=== PATIENT | female | born 1935 | race Hispanic/Latino ===

== ENCOUNTER 2017-09-18 12:14 | Emergency (ER) | payer MEDICARE ==
[2017-09-18 13:09] LABS: SQUAMOUS EPITHIAL 2 /hpf (0-5); URINE BACTERIA RARE (<OCC); URINE BILIRUBIN NEGATIVE (NEGATIVE); URINE BLOOD 2+ (NEGATIVE); URINE CLARITY Clear (Clear); URINE COLOR Straw (YELLOW); URINE GLUCOSE (UA) NORMAL (Normal); URINE LEUKOCYTE ESTERASE 3+ Leu/uL (Negative); URINE PROTEIN NEGATIVE (NEGATIVE); URINE UROBILINOGEN NORMAL mg/dL (0.2-1.0)
[2017-09-18] MEDS ORDERED: Sodium Chloride 0.9% 1,000 ML ONE (13:27)
[2017-09-18] MEDS: Sodium Chloride 0.9% 1,000 ML IV ONE (13:30)
[2017-09-18 13:49] LABS: BASO % 0.7 % (0.0-2.0); EOS % 0.4 % (0.0-4.0); HEMOGLOBIN 11.5 g/dL (11.0-16.0); LYMPH % 28.7 % (20.0-40.0); MEAN CELL VOLUME 82.8 fL (81.0-99.0); MEAN CORPUSCULAR HEMOGLOBIN 28.1 pg (27.0-31.0); MEAN PLATELET VOLUME 8.5 fL (7.2-11.7); MONO # 0.6 K/uL (0.0-0.8); MONO % 8.6 % (0.0-10.0); NEUT # 4.2 K/uL (1.8-7.0); NEUT % 61.6 % (50.0-75.0); NRBC % 0.1 % (0.0-2.0); RBC 4.1 Mil/uL (3.80-5.20); RED CELL DISTRIBUTION WIDTH 18.7 % (11.5-14.5); WHITE BLOOD COUNT 6.9 K/uL (4.8-10.8)
[2017-09-18 14:01] LABS: ALB/GLOB RATIO 1.2 (1.0-2.1); ALBUMIN 3.8 g/dL (3.5-5.0); ALT/SGPT 23 U/L (9-52); AST/SGOT 29 U/L (14-36); BLOOD UREA NITROGEN 18 mg/dL (7-17); CALCIUM 8.9 mg/dl (8.6-10.4); GFR AFRICAN-AMERICAN > 60; GFR NON-AFRICAN AMERICAN > 60; LIPASE 99 U/L (23-300)
--- NOTE | 2017-09-18 15:13 | CT ---
PROCEDURE: CT Abdomen and Pelvis without intravenous contrast HISTORY: SUPRAPUBIC PAIN COMPARISON: 11/14/2013 TECHNIQUE: Without contrast.. Contrast Dose: 0 Radiation dose: Total exam DLP = Total exam DLP = 380.88 mGy-cm. This CT exam was performed using one or more of the following dose reduction techniques: Automated exposure control, adjustment of the mA and/or kV according to patient size, and/or use of iterative reconstruction technique. FINDINGS: LOWER THORAX: No infiltrate/ effusion. Incidentally noted very small right Bochdalek's hernia containing only para renal fat. LIVER: Unremarkable. No gross lesion or ductal dilatation. GALLBLADDER AND BILE DUCTS: Cholecystectomy PANCREAS: Unremarkable. No gross lesion or ductal dilatation. SPLEEN: Unremarkable. ADRENALS: Unremarkable. No mass. KIDNEYS AND URETERS: Unremarkable. No hydronephrosis. No solid mass. VASCULATURE: Unremarkable. No aortic aneurysm. BOWEL: Sigmoid diverticulosis without evidence of diverticulitis. No bowel obstruction. APPENDIX: Unremarkable. Normal appendix. PERITONEUM: No ascites. No pneumoperitoneum. Very small right inguinal hernia containing only mesenteric fat. LYMPH NODES: Unremarkable. No enlarged lymph nodes. BLADDER: Poorly distended. No gross abnormality. REPRODUCTIVE: Several coarse calcifications within the uterus consistent with calcified fibroids. BONES: No acute fracture. OTHER FINDINGS: None. IMPRESSION: Small right inguinal hernia containing only mesenteric fat. Small calcified uterine fibroids. Incidental small right Bochdalek's hernia containing only right para renal fat. No additional abnormality.
--- NOTE | 2017-09-18 16:25 | C.PDOC ---
History Of Present Illness 82-year-old female presents to the emergency department with complaints of lower abdominal pain with dysuria and nausea since yesterday. Patient has a Hx of RA on Methotrexate, diagnosed 05/15/18. Patient denies fever, vomiting, diarrhea, hematuria or any other associated symptoms. Time Seen by Provider: 09/18/17 12:17 Chief Complaint (Nursing): Female Genitourinary History Per: Patient History/Exam Limitations: no limitations Current Symptoms Are (Timing): Still Present Severity: Mild Past Medical History Reviewed: Historical Data, Nursing Documentation, Vital Signs Vital Signs: Last Vital Signs Temp 98.0 F 09/18/17 16:47 Pulse 85 09/18/17 16:47 Resp 16 09/18/17 16:47 BP 158/82 H 09/18/17 16:47 Pulse Ox 98 09/18/17 17:48 - Medical History PMH: Arthritis (KNEE PAIN), Crohn's Disease, HTN, Hypercholesterolemia, Osteoporosis Surgical History: Cholecystectomy, Endoscopy - [facility] Procedures CLOSED ENDOSCOPIC BIOPSY OF LARGE INTESTINE (12/04/13) Family History: States: No Known Family Hx - Social History Hx Tobacco Use: No Hx Alcohol Use: No Hx Substance Use: No - Immunization History Hx Tetanus Toxoid Vaccination: Yes Hx Influenza Vaccination: Yes Hx Pneumococcal Vaccination: Yes Review Of Systems Constitutional: Negative for: Fever, Chills Cardiovascular: Negative for: Chest Pain Respiratory: Negative for: Shortness of Breath Gastrointestinal: Positive for: Nausea, Abdominal Pain. Negative for: Vomiting , Diarrhea Genitourinary: Positive for: Dysuria. Negative for: Hematuria Musculoskeletal: Negative for: Back Pain Physical Exam - Physical Exam Appears: Well, Non-toxic, No Acute Distress Skin: Normal Color, Warm, Dry, No Rash Head: Normacephalic Eye(s): bilateral: Normal Inspection Oral Mucosa: Moist Neck: Normal, Normal ROM Cardiovascular: Rhythm Regular, No Murmur Respiratory: Normal Breath Sounds, No Accessory Muscle Use, No Rales, No Rhonchi , No Wheezing Gastrointestinal/Abdominal: Bowel Sounds, Soft, Tenderness (mild epigastric and suprapubic TTP, (-) McBurney's, (-) Caicedo's), No Guarding, No Rebound Back: No CVA Tenderness Extremity: Normal ROM, No Deformity, No Swelling Neurological/Psych: Oriented x3 ED Course And Treatment - Laboratory Results Result Diagrams: 09/18/17 13:46 09/18/17 13:46 O2 Sat by Pulse Oximetry: 98 (RA) Pulse Ox Interpretation: Normal - CT Scan/US ct abd/pelvis Other Rad Studies (CT/US): Read By Radiologist, Radiology Report Reviewed CT/US Interpretation: Accession No. : [id number]. Patient Name / ID : SHANE HOUGH / [id number]. Exam Date : 09/18/2017 14:42:58 ( Approved ). Study Comment : Sex / Age : F / 82Y. Creator : Gwendolyn Buchanan. Dictator : Valentin Becerril MD. Jinriksha Driver : [employer] Cleaning Machine Tender : Valentin Becerril MD. Approver2 : Report Date : 09/18/2017 14:49:32. My Comment : . PROCEDURE: CT Abdomen and Pelvis without intravenous contrast. HISTORY: SUPRAPUBIC PAIN. COMPARISON: 11/14/2013. TECHNIQUE: Without contrast.. Contrast Dose: 0. Radiation dose: Total exam DLP =. Total exam DLP = 380.88 mGy-cm. This CT exam was performed using one or more of the following dose reduction techniques: Automated exposure control, adjustment of the mA and/or kV according to patient size, and/or use of iterative reconstruction technique. FINDINGS: LOWER THORAX: No infiltrate/ effusion. Incidentally noted very small right Bochdalek's hernia containing only para renal fat. LIVER: Unremarkable. No gross lesion or ductal dilatation. GALLBLADDER AND BILE DUCTS : Cholecystectomy. PANCREAS: Unremarkable. No gross lesion or ductal dilatation. SPLEEN: Unremarkable. ADRENALS: Unremarkable. No mass. KIDNEYS AND URETERS: Unremarkable. No hydronephrosis. No solid mass. VASCULATURE: Unremarkable. No aortic aneurysm. BOWEL: Sigmoid diverticulosis without evidence of diverticulitis. No bowel obstruction. APPENDIX: Unremarkable. Normal appendix. PERITONEUM: No ascites. No pneumoperitoneum. Very small right inguinal hernia containing only mesenteric fat. LYMPH NODES: Unremarkable. No enlarged lymph nodes. BLADDER: Poorly distended. No gross abnormality. REPRODUCTIVE: Several coarse calcifications within the uterus consistent with calcified fibroids. BONES: No acute fracture. OTHER FINDINGS : None. IMPRESSION: Small right inguinal hernia containing only mesenteric fat. Small calcified uterine fibroids. Incidental small right Bochdalek's hernia containing only right para renal fat. No additional abnormality. Progress Note: Blood work, UA, CT scan abd/pelvis ordered and reviewed. Patient given IV NS bolus. Reevaluation Time: 16:15 Reassessment Condition: Improved (On reassessment, patient is resting comfortably, in no pain/distress. On exam, abdomen is soft and nontender. Blood work and UA negative, and CT scan negative for acute findings. Patient is well appearing and comfortable being dishcarged home. She was given Rx for protonix and instructed to follow up with GI within 1 week. She understands she should return to ED if symptoms worsen.) Disposition Counseled Patient/Family Regarding: Studies Performed, Diagnosis, Need For Followup, Rx Given - Disposition Referrals: Polo Romero MD [Staff Provider] - Kath Hirsch MD [Staff Provider] - Disposition: HOME/ ROUTINE Disposition Time: 16:15 Condition: STABLE Additional Instructions: FOLLOW UP WITH YOUR GI SPECIALIST WITHIN 1 WEEK USE MEDICATION DIRECTED RETURN TO ER IF SYMPTOMS WORSEN Prescriptions: Pantoprazole [Protonix EC Tab] 20 mg PO DAILY #30 ect Instructions: Acute Abdomen (Belly Pain), Adult (DC) Forms: [employer] (Iranian) Print Language: BELARUSIAN - Clinical Impression Clinical Impression: Epigastric abdominal pain - Scribe Statement The provider has reviewed the documentation as recorded by the Scribe (Madhav Kaplan) All medical record entries made by the Scribe were at my direction and personally dictated by me. I have reviewed the chart and agree that the record accurately reflects my personal performance of the history, physical exam, medical decision making, and the department course for this patient. I have also personally directed, reviewed, and agree with the discharge instructions and disposition.
[2017-09-18 16:48] VITALS: BP 158/82; PULSE 85; RESP 16; TEMP 98
[2017-09-18 17:45] VITALS: O2SAT 98
== END 2017-09-18 16:55 | disposition home or self-care (01) ==
LOC: C.ER 12:14
DX: R10.13 Epigastric pain (principal); I10 Essential (primary) hypertension; E78.00 Pure hypercholesterolemia, unspecified
CPT/HCPCS: 74176; 80053; 81001; 83690; 85025; 96360; 99284; J7040

== ENCOUNTER 2018-04-16 08:17 | Emergency (ER) | payer MEDICARE ==
[2018-04-16 08:23] VITALS: TEMP 97.6
[2018-04-16] MEDS ORDERED: Sodium Chloride 0.9% 500 ML IV STA (09:30)
[2018-04-16] MEDS ORDERED: Iohexol 240 (50 ml) PO STA (09:30)
[2018-04-16 09:45] LABS: BASO % 0.2 % (0.0-2.0); EOS % 0.1 % (0.0-4.0); HEMOGLOBIN 12.7 g/dL (11.0-16.0); LYMPH # 1.2 K/uL (1.0-4.3); LYMPH % 12.8 % (20.0-40.0); MEAN CORPUSCULAR HEMOGLOBIN 28.7 pg (27.0-31.0); MEAN CORPUSCULAR HGB CONC 33.2 g/dL (33.0-37.0); MEAN PLATELET VOLUME 8.7 fL (7.2-11.7); MONO # 0.5 K/uL (0.0-0.8); MONO % 5.2 % (0.0-10.0); NEUT # 7.6 K/uL (1.8-7.0); NEUT % 81.7 % (50.0-75.0); RBC 4.42 Mil/uL (3.80-5.20); RED CELL DISTRIBUTION WIDTH 16.4 % (11.5-14.5); WHITE BLOOD COUNT 9.3 K/uL (4.8-10.8)
[2018-04-16] MEDS ORDERED: Iohexol 240 (50 ml) ONE (09:50)
[2018-04-16 09:51] LABS: MEAN CELL VOLUME 86.2 fL (81.0-99.0)
[2018-04-16 09:52] LABS: SQUAMOUS EPITHIAL 4 /hpf (0-5); URINE BILIRUBIN NEGATIVE (NEGATIVE); URINE BLOOD 2+ (NEGATIVE); URINE CLARITY Clear (Clear); URINE COLOR Yellow (YELLOW); URINE GLUCOSE (UA) NORMAL (Normal); URINE LEUKOCYTE ESTERASE 1+ Leu/uL (Negative); URINE PROTEIN NEGATIVE (NEGATIVE); URINE UROBILINOGEN NORMAL mg/dL (0.2-1.0)
[2018-04-16 09:57] LABS: ALB/GLOB RATIO 1.3 (1.0-2.1); ALBUMIN 4.1 g/dL (3.5-5.0); ALT/SGPT 25 U/L (9-52); AST/SGOT 24 U/L (14-36); BLOOD UREA NITROGEN 17 mg/dL (7-17); CALCIUM 9.1 mg/dl (8.6-10.4); GFR NON-AFRICAN AMERICAN > 60; LIPASE 48 U/L (23-300)
--- NOTE | 2018-04-16 12:54 | C.PDOC ---
History Of Present Illness 82 y/o female presents to the ER for evaluation of abdominal pain which began yesterday. Patient states that she vomited x1 in the morning today. Patient reports that she has history of UTI's. Denies having fever, chills, dysuria, he maturia, diarrhea, and constipation. Time Seen by Provider: 04/16/18 08:55 Chief Complaint (Nursing): Abdominal Pain History Per: Patient History/Exam Limitations: no limitations Onset/Duration Of Symptoms: Days Current Symptoms Are (Timing): Still Present Severity: Moderate Past Medical History Reviewed: Historical Data, Nursing Documentation, Vital Signs Vital Signs: Last Vital Signs Temp 97.6 F 04/16/18 08:20 Pulse 74 04/16/18 08:20 Resp 20 04/16/18 08:20 BP 176/79 H 04/16/18 08:20 Pulse Ox 100 04/16/18 08:20 - Medical History PMH: Arthritis (KNEE PAIN), Crohn's Disease, HTN, Hypercholesterolemia, Osteoporosis Denies: Anxiety, Bipolar Disorder, Depression, Paranoia, Post Traumatic Stress Disorder, Chronic Kidney Disease, Schizophrenia Surgical History: Cholecystectomy, Endoscopy - [facility] Procedures CLOSED ENDOSCOPIC BIOPSY OF LARGE INTESTINE (12/04/13) Family History: States: No Known Family Hx - Social History Hx Tobacco Use: No Hx Alcohol Use: No Hx Substance Use: No - Immunization History Hx Tetanus Toxoid Vaccination: Yes Hx Influenza Vaccination: Yes Hx Pneumococcal Vaccination: Yes Review Of Systems Except As Marked, All Systems Reviewed And Found Negative. Constitutional: Negative for: Fever, Chills Gastrointestinal: Positive for: Vomiting, Abdominal Pain. Negative for: Diarrhea Genitourinary: Negative for: Dysuria, Hematuria Physical Exam - Physical Exam Appears: Non-toxic, No Acute Distress Skin: Normal Color, Warm, Dry Head: Atraumatic, Normacephalic Eye(s): bilateral: Normal Inspection Nose: Normal Oral Mucosa: Moist Neck: Supple Chest: Symmetrical Cardiovascular: Rhythm Regular Respiratory: Normal Breath Sounds, No Rales, No Rhonchi, No Wheezing Gastrointestinal/Abdominal: Soft, Tenderness (mild tenderness in epigastric region, tenderness in lower abdomen), No Guarding, No Rebound Neurological/Psych: Oriented x3, Normal Speech ED Course And Treatment - Laboratory Results Result Diagrams: 04/16/18 09:41 04/16/18 09:41 O2 Sat by Pulse Oximetry: 100 (RA) Pulse Ox Interpretation: Normal - CT Scan/US CT-Abd & Pelv. Other Rad Studies (CT/US): Read By Radiologist, Radiology Report Reviewed CT/US Interpretation: Date of service: 04/16/2018. PROCEDURE: CT Abdomen and Pelvis with contrast. HISTORY: abd pain, nausea. COMPARISON: Noncontrast abdomen pelvis CT 09/18/2017. TECHNIQUE: Helical CT of the abdomen and pelvis was performed without oral or intravenous contrast as per referring physician request. Coronal and sagittal reformats were generated. Radiation dose: Total exam DLP = 440.75 mGy-cm. This CT exam was performed using one or more of the following dose reduction techniques: Automated exposure control, adjustment of the mA and/or kV according to patient size, and/or use of iterative r econstruction technique. FINDINGS: LOWER THORAX: Unremarkable. LIVER: Stable appearing unenhanced liver parenchyma. GALLBLADDER AND BILE DUCTS: Prior cholecystectomy reiterated. PANCREAS: Unremarkable. No gross lesion or ductal dilatation. SPLEEN: Unremarkable. ADRENALS: Unremarkable. No mass. KIDNEYS AND URETERS: No obstructive uropathy or suspicious perinephric reaction. No radiodense calculi are identified bilaterally. Mildly prominent extrarenal pelvis medial right kidney reiterated. VASCULATURE: Nonaneurysmal abdominal aortic calcific atherosclerotic changes are identified. BOWEL: Oral contrast mildly distends the stomach. The antrum ibarra appear somewhat thickened suspicious for antritis. Further, there is [id number] small- bowel dilatation at the central abdomen without collapse per oral contrast is identified entering into the cecum but no additional large bowel segment. Gas and fluid is seen at the ascending colon with retained fecal material scattered otherwise throughout the remainder on a ppnq-oy-vdjqewow basis. Sigmoid diverticular are identified. The sigmoid colon is partially collapsed limited limiting evaluation of the wall. Overall pattern suggests likely mild ileus. No definite bowel obstruction appreciable. Clinical follow-up recommended. APPENDIX: Not identified. No CT evidence of appendicitis. PERITONEUM: No free intra peritoneal gas collection. Trace fluid is seen the pelvis of uncertain origin. Small right inguinal hernia is identified containing only mesenteric fat. LYMPH NODES: Unremarkable. No enlarged lymph nodes. BLADDER: Unremarkable. REPRODUCTIVE: Partially calcified uterine fibroids noted. BONE S: No acute fracture. OTHER FINDINGS: None. IMPRESSION: 1. Overall pattern most suggestive of mild ileus developing involving small bowel. No definite bowel obstruction appreciated at this time. 2. Thickening of the antrum is seen on relatively diffuse basis although the antrum is not fully distended. Consider potential antritis. Follow-up advised. 3. Sigmoid diverticulosis without definite diverticulitis. 4. Prior cholecystectomy. 5. Other lesser findings as discussed above. Progress Note: Labs, UA, and CT- Abd & Pelv .ordered.Patient treated with IV Fluids. On re-evaluation patient feels better. She wants to go home and sts she will come back if she feels worse. Disposition - Disposition Disposition: HOME/ ROUTINE Disposition Time: 14:52 Condition: STABLE Additional Instructions: Follow up with PMD within 1-2 days. Return to Ed immediately if feel worse. Prescriptions: Famotidine [Pepcid] 20 mg PO BID #20 tab Ondansetron ODT [Zofran ODT] 4 mg PO .Q4-6H PRN #20 odt PRN Reason: Nausea/Vomiting Instructions: Viral Gastroenteritis Forms: [employer] (Qatari) - Clinical Impression Clinical Impression: Gastroenteritis - PA / BRIDGE TOLL COLLECTOR / Resident Statement MD/DO has reviewed & agrees with the documentation as recorded. - Scribe Statement The provider has reviewed the documentation as recorded by the Lefty Hussein Provider Attestation All medical record entries made by the iSvanibe were at my direction and personally dictated by me. I have reviewed the chart and agree that the record accurately reflects my personal performance of the history, physical exam, medical decision making, and the department course for this patient. I have also personally directed, reviewed, and agree with the discharge instructions and disposition.
--- NOTE | 2018-04-16 13:14 | CT ---
Date of service: 04/16/2018 PROCEDURE: CT Abdomen and Pelvis with contrast HISTORY: abd pain, nausea COMPARISON: Noncontrast abdomen pelvis CT 09/18/2017. TECHNIQUE: Helical CT of the abdomen and pelvis was performed without oral or intravenous contrast as per referring physician request. Coronal and sagittal reformats were generated Radiation dose: Total exam DLP = 440.75 mGy-cm. This CT exam was performed using one or more of the following dose reduction techniques: Automated exposure control, adjustment of the mA and/or kV according to patient size, and/or use of iterative reconstruction technique. FINDINGS: LOWER THORAX: Unremarkable. LIVER: Stable appearing unenhanced liver parenchyma. GALLBLADDER AND BILE DUCTS: Prior cholecystectomy reiterated. PANCREAS: Unremarkable. No gross lesion or ductal dilatation. SPLEEN: Unremarkable. ADRENALS: Unremarkable. No mass. KIDNEYS AND URETERS: No obstructive uropathy or suspicious perinephric reaction. No radiodense calculi are identified bilaterally. Mildly prominent extrarenal pelvis medial right kidney reiterated. VASCULATURE: Nonaneurysmal abdominal aortic calcific atherosclerotic changes are identified. BOWEL: Oral contrast mildly distends the stomach. The antrum ibarra appear somewhat thickened suspicious for antritis. Further, there is ibgf-pu-kybpaudl small-bowel dilatation at the central abdomen without collapse per oral contrast is identified entering into the cecum but no additional large bowel segment. Gas and fluid is seen at the ascending colon with retained fecal material scattered otherwise throughout the remainder on a [id number]-cl-gftxzsun basis. Sigmoid diverticular are identified. The sigmoid colon is partially collapsed limited limiting evaluation of the wall. Overall pattern suggests likely mild ileus. No definite bowel obstruction appreciable. Clinical follow-up recommended. APPENDIX: Not identified. No CT evidence of appendicitis. PERITONEUM: No free intra peritoneal gas collection. Trace fluid is seen the pelvis of uncertain origin. Small right inguinal hernia is identified containing only mesenteric fat. LYMPH NODES: Unremarkable. No enlarged lymph nodes. BLADDER: Unremarkable. REPRODUCTIVE: Partially calcified uterine fibroids noted. BONES: No acute fracture. OTHER FINDINGS: None. IMPRESSION: 1. Overall pattern most suggestive of mild ileus developing involving small bowel. No definite bowel obstruction appreciated at this time. 2. Thickening of the antrum is seen on relatively diffuse basis although the antrum is not fully distended. Consider potential antritis. Follow-up advised. 3. Sigmoid diverticulosis without definite diverticulitis. 4. Prior cholecystectomy. 5. Other lesser findings as discussed above.
[2018-04-16 15:05] VITALS: BP 156/86; PULSE 69; RESP 16; O2SAT 98
== END 2018-04-16 15:04 | disposition home or self-care (01) ==
LOC: C.ER 08:17
DX: K52.9 Noninfective gastroenteritis and colitis, unspecified (principal)
CPT/HCPCS: 74176; 80053; 81001; 83690; 85025; 87086; 96360; 99284; J7040; Q9966